=== PATIENT | female | born 2000 | race Caucasian/White ===

== ENCOUNTER 2023-02-02 19:28 | Emergency (ER) | payer BC, SELFPAY ==
--- NOTE | 2023-02-02 19:45 | ED_ITS ---
HPI - URI/Sore Throat General Chief Complaint: General Medical Stated Complaint: white spots back of throat Time Seen by Provider: 02/02/23 21:32 Source: patient Mode of arrival: ambulatory Limitations: no limitations History of Present Illness HPI Narrative: Patient is a 22-year-old female with no significant past medical history presenting today with 4 days of sore throat with new onset of white spots in her posterior pharynx today. She states that the pain is a constant 3/10 and worse stinging with swallowing. She denies any additional symptoms including cough, SOB, chest pain, congestion, fevers/chills, rhinorrhea, changes in energy level. Related Data Previous Rx's Medication Instructions Recorded Magic Mouthwash 5 ml PO TID #240 mL 02/02/23 Diphen/Lido/Antacid 1:1:1 240 mL suspension prednisone 20 mg tablet 40 mg PO DAILY 5 days #10 tabs 02/02/23 Allergies Allergy/AdvReac Type Severity Reaction Status Date / Time amoxicillin AdvReac Mild Hives Verified 02/01/23 14:25 Review of Systems Review of Systems: Constitutional : No Weight loss, No Fever, No Chills, No Fatigue, No Malaise ENT/Mouth : + sore throat, No Rhinorrhea Eyes: No Eye Pain, No Swelling, No Redness Cardiovascular : No Chest Pain, No SOB, No Dyspnea on Exertion, No Orthopnea, No Edema, No Palpitations Respiratory : No Cough, No Sputum, No Wheezing Gastrointestinal : No Nausea, No Vomiting, No Diarrhea, No Constipation, No abd ominal Pain, No Hematochezia, No Melena Genitourinary : No Dysuria, No Urinary Frequency, No Hematuria, Musculoskeletal : No joint pain, No Myalgias, No Joint Swelling Skin : No Skin Lesions, No rash Neuro : No Weakness, No Numbness, No Dizziness, No Headache Psych : No Anxiety/Panic, No Depression All other systems reviewed and are negative Yes all other systems are reviewed and are negative [facility] Past Medical History Attestation statement: The following information was validated with the patient. Source: old records reviewed and nursing notes reviewed Social History Social History Patient Tobacco Use Status: Never used Tobacco Advance Directives: No Advance Directives Information Provided: No Physical Exam Vital Signs: Vital Signs: Last Vital Signs Temp 98.9 F 02/02/23 19:46 Pulse 77 02/02/23 19:46 Resp 18 02/02/23 19:46 BP 129/81 02/02/23 19:46 Pulse Ox 100 02/02/23 19:46 O2 Del Method Room Air 02/02/23 19:46 BMI result Body Mass Index 28.2 vss Appearance: Alert.? Oriented X3.? No acute distress.? Head: Normocephalic, atraumatic, no step-offs or deformities Eyes: Pupils equal, round and reactive to light.? ENT: Bilateral tonsils with erythema & ulcerated area/sores in posterior pharynx. No edema. Uvula midline. No signs of retropharyngeal or peritonsillar abscess. Patient speaking in full sentences controlling se cretions well. No palpable cervical or occipital adenopathy. Neck: Normal inspection.? Neck supple.? CVS: Normal heart rate and rhythm.? Pulses normal.? Respiratory: No respiratory distress.? Breath sounds normal.? Abdomen: Soft and nontender.? Skin: Skin warm and dry.? Normal skin color.? Normal skin turgor.? Extremities: No lower extremity edema.? No calf ttp. 5/5 strength to bilateral upper and lower extremities Back: No midline tenderness, no C-spine tenderness, full range of motion, no CVA tenderness bilaterally Neuro: Oriented X 3.? No motor deficit.? No sensory deficit. CN 2-12 intact Course Course Course Narrative: This is a rapid medical exam. Deferred additional HPI, ROS, PE to primary provider. 22yo female here with sore throat with white patches x 4 days. No fevers, chills. Will send testing for strep, covid. VSS Reevaluation(s) Reevaluation #1: COVID and strep negative. Low suspicion for strep throat, will not treat with antibiotics. I suspect this is likely a viral illness will give Magic mouthwash and prednisone. Educated patient on diagnosis and treatment plan, answered all question, patient verbalizes understanding. At this time patient will be discharged home, advised to return with new or worsening symptoms. Educated on worrisome signs and symptoms and when to return. At this time I feel comfortable discharge home. Time: 21:38 Medical Decision Making Medical Decision Making MDM Narrative: 22-year-old female presents with sore throat x4 days. Physical exam significant for Bilateral tonsils with erythema & ulcerated area/sores in posterior pharynx. No edema. Uvula midline. No signs of retropharyngeal or peritonsillar abscess. Patient speaking in full sentences controlling secretions well. No palpable cervical or occipital adenopathy. Concerns for possible strep pharyngitis versus viral illness/ pharyngitis vs allergic pharyngitis. Unlikely peritonsillar abscess, retropharyngeal abscess, epiglottitis. No signs of airway compromise. Plan-viral testing, strep test Differential Diagnosis Differential Diagnoses: The differential diagnosis associated with the presentation includes Concerns for possible strep pharyngitis versus viral illness/ pharyngitis vs allergic pharyngitis. Unlikely peritonsillar abscess, retropharyngeal abscess, epiglottitis. No signs of airway compromise. Admission/Observation Consideration of admission/observation: Escalation of care including admission/observation considered Lab Data MDM Lab Attestation statement: I reviewed the patient's lab results. Labs: Lab Results 02/02/23 02/02/23 Range/Units 19:51 19:51 COVID-19 ([facility]) Negative (Negative) COVID-19 Clin Com See Note S. pyogenes GrpA KALLI Negative (Negative) Core Measures AMI core measures followed: Yes Measure exclusions: not indicated Critical Care Time Critical Care Time Critical Care Time: No Discharge Plan Discharge Clinical Impression: Pharyngitis Patient Disposition: Home, Self-Care Instructions: Pharyngitis (ED) Additional Instructions: Take your medications as prescribed. If you were prescribed antibiotics today, it is important that you take your medication to their entirety, do not skip any doses, do not finish them early. Follow-up with your primary care provider this week. Return to the emergency department with new or worsening symptoms. Such as fevers, chills, chest pain, shortness of breath, nausea, vomiting, dizziness, headache, vision changes, lethargy In case of emergency call 911 Prescriptions: New prednisone 20 mg tablet 40 mg PO DAILY 5 Days Qty: 10 0RF Magic Mouthwash Diphen/Lido/Antacid 1:1:1 240 mL suspension 5 ml PO TID Qty: 240 0RF Rx Instructions: Lidocaine Viscous 2 % 80mL; diphenhydramine 12.5 mg/5 mL 80mL; aluminum-mag hydrox-simeth [id number]/5mL 80mL Swish and spit, do not swallow Referrals: Physician,None [Primary Care Provider] - 2 days Interventions: ED Discharge Assessment Last Done: 02/02/23 22:22
[2023-02-02 19:46] VITALS: BP 129/81; PULSE 77; RESP 18; TEMP 37.2; O2SAT 100; BMI 28.2
[2023-02-02 20:09] LABS: IDNOW Serial# 08D9AD1C; Strep A Nucleic Acid Negative (Negative)
[2023-02-02 20:16] LABS: COVID-19 Test Negative (Negative); IDNOW Serial# BCCEAD1C
== END 2023-02-02 22:26 | disposition home or self-care (01) ==
PROVIDERS: Nurse Practitioner Family; Emergency Provider Emergency Medicine Emergency Medical Services
DX: J02.9 Acute pharyngitis, unspecified (principal); Z20.822 Contact with and (suspected) exposure to COVID-19; Z20.828 Contact with and (suspected) exposure to other viral communicable diseases
CPT/HCPCS: 87635; 87651; 99282; 99283